=== PATIENT | male | born 1980 | race Caucasian/White ===

== ENCOUNTER 2022-04-26 13:10 | Emergency (ER) | payer SELFPAY ==
[~2022-04-26] VITALS: Ht 170.2 cm; Wt 75.0 kg
[2022-04-26 13:23] VITALS: BP 138/65
== END 2022-04-26 19:40 | disposition left against medical advice (07) ==
LOC: ER 13:10
DX: Z53.21 Procedure and treatment not carried out due to patient leaving prior to being seen by health care provider (principal)